=== PATIENT | male | born 1930 | race Caucasian/White ===

== ENCOUNTER 2017-06-17 06:51 | Day surgery (SDC) | payer OTHER, BC ==
[2017-06-17] MEDS ORDERED: SUCCINYLCHOLINE CHLORIDE 200 MG/10 ML VIAL ONE (07:48)
[2017-06-17] MEDS ORDERED: PROPOFOL 20 ML ONE (07:48)
[2017-06-17] MEDS ORDERED: PHENYLEPHRINE HCL 10 MG/1 ML SINGLE DOSE VIAL ONE (07:49)
[2017-06-17 08:28] VITALS: TEMP 98.1
[2017-06-17 09:15] VITALS: BP 122/43; PULSE 64
== END 2017-06-17 09:40 | disposition home or self-care (01) ==
LOC: JASU-ENDO 06:51
PROVIDERS: ATTEND Internal Medicine Gastroenterology
PROC: 0DJD8ZZ Inspection of Lower Intestinal Tract, Via Natural or Artificial Opening Endoscopic (ICD-10-PCS; principal; 2017-06-17 08:00)
DX: Z12.11 Encounter for screening for malignant neoplasm of colon (principal); K57.30 Diverticulosis of large intestine without perforation or abscess without bleeding; K64.8 Other hemorrhoids; Z86.010 Personal history of colon polyps

== ENCOUNTER 2019-11-08 16:00 | Emergency (ER) | payer OTHER, BC ==
[2019-11-08 16:19] VITALS: BMI 20.5
--- NOTE | 2019-11-08 16:19 | PDOC ---
Rapid Medical Evaluation Time Seen by Provider: 11/08/19 16:15 Medical Evaluation: Allergies Allergy/AdvReac Type Severity Reaction Status Date / Time No Known Drug Allergies Allergy Verified 04/15/17 12:58 11/08/19 16:15 This patient had a brief in-person evaluation in triage cc:abdominal pain HPI: Patient reports abdominal pain since Friday Reports nausea and vomiting and coughing Friday. States sent by pmd for further evaluation. Denies injury PE: NAD unlabored breathing +left upper quadrant tenderness Orders:chest xray and abdominal This patient will proceed to main ed for further evaluation 11/08/19 16:18 Discharge Disposition - Diagnosis Abdominal pain - Referrals - Patient Instructions - Post Discharge Activity
[2019-11-08] MEDS ORDERED: SODIUM CHLORIDE 500 ML IV STA (17:24)
--- NOTE | 2019-11-08 17:32 | PDOC ---
Attending Attestation - Resident Resident Name: Bernard Cueto - ED Attending Attestation I have performed the following: I have examined & evaluated the patient, The case was reviewed & discussed with the resident, I agree w/resident's findings & plan, Exceptions are as noted - HPI HPI: 11/08/19 17:30 This 89-year-old male was sent in by his doctors Dr. Ulises Corrigan for acute left upper quadrant pain. He states that he had vomiting on Friday and started to cough some on Friday. Past medical history cholecystectomy, PTCA, coronary artery disease, hypertension hyperlipidemia, spinal stenosis, benign prostate hypertrophy benign , glaucoma, spinal stenosis, chronic back pain - Physicial Exam PE: 11/08/19 17:41 89-year-old presents with exquisitely tender left upper quadrant/splenic area pain Head normocephalic atraumatic Neck supple Lungs clear to auscultation bilaterally with some bibasilar rhonchi CVS regular rate and rhythm S1-S2 Abdomen protuberant with tenderness to palpation in the left upper quadrant mild guarding Skin warm and dry No flank tenderness Neuro alert and oriented x3, ambulatory - Medical Decision Making 11/08/19 17:42 Since the patient has been coughing and vomiting and then suddenly developed this left splenic/intercostal muscle pain .plain films were taken of the chest and abdomen both of which were unrevealing Therefore we will do a CAT scan of abdomen We will do labs including CBC and chemistry to make sure that we can give him IV contrast 11/08/19 17:43 11/08/19 20:47 negative troponin normal creatinine ct scan chest /abd pending 11/08/19 22:13 CT of the abdomen and pelvis findings prostatic enlargement, no acute pathology within the abdomen or pelvis CT of the chest with contrast showed some by basilar consolidation/atelectasis with a small pleural effusion left greater than right No evidence of mediastinal masses, no fluid collections no lymphadenopathy The heart was not enlarged 11/08/19 22:14 Impression musculoskeletal strain, possible muscle tear, pleuritic chest pain Plan discharge home patient has no respiratory difficulties, no fever, no evidence of significant effusions or pneumonia Patient follow-up with Dr. Ulises Corrigan and take [id number] pain meds
--- NOTE | 2019-11-08 17:32 | PDOC ---
History of Present Illness - General Chief Complaint: Pain Stated Complaint: ABD PAIN Time Seen by Provider: 11/08/19 16:15 - History of Present Illness Initial Comments: 11/08/19 17:32 HPI: 89 y/o M with hx of justus, CAD, HTN, HLD, spinal stenosis, BPH, chronic back pain sent in by Dr Jaden Corrigan presenting with LUQ pain x4 days. Pain is 10/10 and non-radiating. Pain is only present with coughing and when engaging core muscles trying to get up. Pain is harp in nature. No improvement with tylenol and aleve. Denies fever, chills, chest pain, SOB, fever, chills, LH, GARY, dizziness, n/v, dysuria. PMHx: as noted above ROS: as noted SHx: Denies tobacco use; occ alcohol use; no rec drugs Allergies: NKDA ROS: GENERAL/CONSTITUTIONAL: No fever or chills. No weakness. HEAD, EYES, EARS, NOSE AND THROAT: No change in vision. No ear pain or discharge. No sore throat. CARDIOVASCULAR: No chest pain or shortness of breath RESPIRATORY: No cough, wheezing, or hemoptysis. GASTROINTESTINAL: No nausea, vomiting, diarrhea or constipation. GENITOURINARY: No dysuria, frequency, or change in urination. MUSCULOSKELETAL: +left rib pain SKIN: No rash NEUROLOGIC: No headache, vertigo, loss of consciousness, or change in strength/ sensation. ENDOCRINE: No increased thirst. No abnormal weight change HEMATOLOGIC/LYMPHATIC: No anemia, easy bleeding, or history of blood clots. ALLERGIC/IMMUNOLOGIC: No hives or skin allergy. PE: GENERAL: Awake, alert, and fully oriented, no acute distress HEAD: No signs of trauma, normocephalic, atraumatic EYES: EOMI, sclera anicteric, conjunctiva clear ENT: Auricles normal inspection, hearing grossly normal, nares patent, oropharynx clear without exudates. Moist mucosa NECK: Normal ROM, no lymphadenopathy LUNGS: No increased work of breathing, symmetrical chest rise, BL lung field rales HEART: Regular rate, regular rhythm, normal S1 and S2, no murmur, peripheral pulses 2+ and equal bilaterally. ABDOMEN: Soft, nondistended, LUQ ttp with guarding normoactive bowel sounds. No guarding, no rebound. No masses. No CVAT MUSCULOSKELETAL: FROM; left lower costal margin ttp NEUROLOGICAL: Cranial nerves II through XII grossly intact. Normal speech, normal gait, no focal sensorimotor deficits SKIN: Warm, Dry, normal turgor, no rashes or lesions noted Past History - Past Medical History Allergies/Adverse Reactions: Allergies Allergy/AdvReac Type Severity Reaction Status Date / Time No Known Drug Allergies Allergy Verified 11/08/19 16:19 Home Medications: Ambulatory Orders Aspirin 81 mg PO DAILY 04/05/13 Bimatoprost [Lumigan] 5 ml OU HS 04/05/13 Cyclosporine [Restasis] 1 each OU BID 04/05/13 Dutasteride/Tamsulosin HCl [Florinda 0.5-0.4 mg Capsule] 1 each PO HS 04/05/13 Rosuvastatin Calcium [Crestor] 20 mg PO HS 04/05/13 Brimonidine Tartrate/Timolol [Combigan 0.2%-0.5% Eye Drops] 5 ml OU BID Sodium Chloride [Danish-128] 1 drop OD QID 06/16/17 Dorzolamide HCl [Trusopt 2% -] 1 drop OS TID 06/17/17 Anemia: No Asthma: No Cancer: No Cardiac Disorders: Yes (ANGINA) CVA: No COPD: No CHF: No Dementia: No Diabetes: No GI Disorders: Yes (CONSTIPATION, DIVERTICULOSIS) Disorders: Yes (BPH) HTN: No Hypercholesterolemia: Yes Liver Disease: No Seizures: No Thyroid Disease: No - Surgical History Abdominal Surgery: No Appendectomy: No Cardiac Surgery: No Cholecystectomy: No Lung Surgery: No Neurologic Surgery: No Orthopedic Surgery: No - Immunization History Immunization Up to Date: Yes - Psycho Social/Smoking Cessation Hx Smoking History: Never smoked Have you smoked in the past 12 months: No If you are a former smoker, when did you quit?: 1965 Information on smoking cessation initiated: No Hx Alcohol Use: No Drug/Substance Use Hx: No Substance Use Type: None Hx Substance Use Treatment: No *Physical Exam - Vital Signs Last Vital Signs Temp Pulse Resp BP Pulse Ox 97.2 F L 54 L 18 110/43 L 94 L 11/08/19 16:14 11/08/19 16:14 11/08/19 16:14 11/08/19 16:14 11/08/19 16:14 ED Treatment Course - LABORATORY CBC & Chemistry Diagram: 11/08/19 18:40 11/08/19 18:40 Medical Decision Making - Medical Decision Making 11/08/19 18:10 89 y/o M with hx of justus, CAD, HTN, HLD, spinal stenosis, BPH, chronic back pain sent in by Dr Jaden Corrigan presenting with LUQ pain x4 days worse with coughing and getting up. VSS, AF. Pe with LUQ and left lower costal margin ttp. -cbc, cmp, cardiac prof, ekg, cxr, ct a/p, lipase, lactate -ofirmev, ivf 11/08/19 22:06 labs wnl; CK 800 CT: IMPRESSION: 1. Bibasilar consolidation/atelectasis and small pleural effusions, left greater than right. 2. Prostatic enlargement, no acute pathology within the abdomen or pelvis. Please see above discussion. Discharge - Discharge Information Problems reviewed: Yes Clinical Impression/Diagnosis: Musculoskeletal pain Abdominal pain Qualifiers: Abdominal location: left upper quadrant Qualified Code(s): R10.12 - Left upper quadrant pain Condition: Stable Disposition: HOME - Follow up/Referral - Patient Discharge Instructions Patient Printed Discharge Instructions: DI for Musculoskeletal Pain Additional Instructions: Additional Instructions: Please return to the emergency department with any new or worsening symptoms or concerns including fever, coughing blood, fainting, significant shortness of breath. Please follow up with your primary care physician within 72 hours. You may use over the counter medications as needed for pain at home. 650-1000mg acetaminophen (Tylenol) or 600mg ibuprofen (Motrin or Advil) can be used every 6 -8 hours. If needed for continued pain, these medications may be alternated every 3-4 hours. For example, if you take ibuprofen at 9am, you may take acetaminophen at noon, ibuprofen at 3pm, etc. You may also consider over the counter robitussin to assist in anti-cough effects - Post Discharge Activity
[2019-11-08 19:11] LABS: BASO % 0.2 % (0-2.0); EOS % 2.1 % (0-4.5); HEMATOCRIT 41.1 % (35.4-49); HEMOGLOBIN 13.6 GM/dL (11.7-16.9); LYMPH % 21.2 % (8-40); MCH 29.9 pg (25.7-33.7); MCHC 33.2 g/dl (32.0-35.9); MEAN PLT VOLUME 9.1 fl (7.5-11.1); MONO % 15.7 % (3.8-10.2); NEUT % 60.8 % (42.8-82.8); PLATELET COUNT 207 K/MM3 (134-434); RBC 4.57 M/mm3 (4.00-5.60); RDW 13.7 % (11.9-15.9); WHITE BLOOD COUNT 7.9 K/mm3 (4.0-10.0)
[2019-11-08] MEDS ORDERED: ACETAMINOPHEN 1000 MG/100 ML VIAL (NON FORMULARY) IVPB ONE (19:23)
[2019-11-08 19:35] LABS: ALBUMIN 3.3 g/dl (3.4-5.0); ALK PHOS 65 U/L (45-117); ANION GAP 6 MMOL/L (8-16); BILIRUBIN,TOTAL 0.4 mg/dL (0.2-1); BLOOD UREA NITROGEN 24.6 mg/dL (7-18); CALCIUM 8.3 mg/dL (8.5-10.1); CHLORIDE 102 mmol/L (98-107); CO2 26 mmol/L (21-32); CREATININE 1.2 mg/dL (0.55-1.3); GLUCOSE,RANDOM 83 mg/dL (74-106); LIPASE 126 U/L (73-393); POTASSIUM 4.5 mmol/L (3.5-5.1); SGOT/AST 42 U/L (15-37); SGPT/ALT 33 U/L (13-61); SODIUM 134 mmol/L (136-145); TOT PROT 6.7 g/dl (6.4-8.2)
[2019-11-08] MEDS ORDERED: ACETAMINOPHEN INJECTION 100 ML IVPB ONE (19:56)
[2019-11-09 04:45] VITALS: BP 110/73; PULSE 58; TEMP 97.8
--- NOTE | 2019-11-09 09:27 | EKG ---
Test Reason : Blood Pressure : / mmHG Vent. Rate : 054 BPM Atrial Rate : 054 BPM P-R Int : 186 ms QRS Dur : 098 ms QT Int : 414 ms P-R-T Axes : 022 -17 012 degrees QTc Int : 392 ms SINUS BRADYCARDIA OTHERWISE NORMAL ECG WHEN COMPARED WITH ECG OF 11-APR-2004 09:22, NO SIGNIFICANT CHANGE WAS FOUND Confirmed by Merrick Castle MD ([id number]) on 11/09/2019 9:26:34 AM Referred By: Confirmed By:Merrick Castle MD
== END 2019-11-08 22:25 | disposition home or self-care (01) ==
LOC: JER 16:00 → SUPCPDRO 16:00 → JER 22:25
PROC: 3E0337Z Introduction of Electrolytic and Water Balance Substance into Peripheral Vein, Percutaneous Approach (ICD-10-PCS; principal; 2019-11-08)
PROC: 3E033NZ Introduction of Analgesics, Hypnotics, Sedatives into Peripheral Vein, Percutaneous Approach (ICD-10-PCS; 2019-11-08)
DX: M79.18 Myalgia, other site (principal); I25.119 Atherosclerotic heart disease of native coronary artery with unspecified angina pectoris; I10 Essential (primary) hypertension; E78.00 Pure hypercholesterolemia, unspecified; N40.0 Benign prostatic hyperplasia without lower urinary tract symptoms; M48.00 Spinal stenosis, site unspecified; Z87.19 Personal history of other diseases of the digestive system
CPT/HCPCS: 36415; 71046-TC-FY; 71260-TC; 74019-TC-FY; 74177-TC; 80053; 82550; 82553; 83605; 83690; 84484; 85025; 93005; 93010; 96361; 96374; 99284-25; J0131; Q9967